=== PATIENT | male | born 1990 | race Caucasian/White ===

== ENCOUNTER 2017-10-24 17:13 | Emergency (ER) | payer BC, MEDICAID ==
[~2017-10-24] VITALS: Ht 172.7 cm; Wt 79.0 kg
[2017-10-24] MEDS ORDERED: SODIUM CHLORIDE FLUSH 10ML SYR IVF ONE (17:30)
[2017-10-24 17:53] LABS: BASOPHILS # (AUTO) 0.05 x10^3/uL (0-0.1); BASOPHILS % (AUTO) 0 % (0-1); EOSINOPHILS # (AUTO) 0.11 x10^3/uL (0-0.4); EOSINOPHILS % (AUTO) 1 % (1-7); LYMPHOCYTES # (AUTO) 2.07 x10^3/uL (1-3.4); LYMPHOCYTES % (AUTO) 18 % (22-44); MD NO; MEAN CORPUSCULAR HEMOGLOBIN 32.2 pg (27.5-34.5); MEAN CORPUSCULAR HGB CONC 34.3 g/dL (33.2-36.2); MEAN CORPUSCULAR VOLUME 93.8 fL (81-97); MEAN PLATELET VOLUME 9.1 fL (7.4-10.4); MONOCYTES # (AUTO) 0.45 x10^3/uL (0.2-0.8); MONOCYTES % (AUTO) 4 % (2-9); NEUTROPHILS # (AUTO) 8.69 x10^3/uL (1.8-6.8); NEUTROPHILS % (AUTO) 76 % (42-75); PLATELET COUNT 276 x10^3/uL (130-400); RED BLOOD COUNT 4.62 x10^6/uL (4.38-5.82); RED CELL DISTRIBUTION WIDTH 12.6 % (9.4-14.8)
[2017-10-24 18:05] LABS: ALANINE AMINOTRANSFERASE 43 U/L (12-78); ALBUMIN 4.1 g/dL (3.4-5.0); ANION GAP 8 mmol/L (5-15); CALCIUM 9.1 mg/dL (8.5-10.1); CHLORIDE 108 mmol/L (98-107)
[2017-10-24 18:10] LABS: ALKALINE PHOSPHATASE 94 U/L (45-117); BILIRUBIN,TOTAL 0.4 mg/dL (0.2-1.0); TOTAL PROTEIN 7.8 g/dL (6.4-8.2); TROPONIN I < 0.015 ng/mL (0.000-0.045)
[2017-10-24 18:44] VITALS: BP 128/78
== END 2017-10-24 19:02 | disposition home or self-care (01) ==
LOC: ED 18:00
DX: R07.89 Other chest pain (principal); J45.909 Unspecified asthma, uncomplicated; G43.909 Migraine, unspecified, not intractable, without status migrainosus; Z87.891 Personal history of nicotine dependence
CPT/HCPCS: 36415; 71045; 80053; 83690; 84484; 85025; 93005; 99285

== ENCOUNTER 2018-11-16 06:42 | Emergency (ER) | payer SELFPAY ==
[~2018-11-16] VITALS: Ht 172.7 cm; Wt 80.6 kg
--- NOTE | 2018-11-16 07:06 | NUR ---
PT. TO ED WITH C/O ANXIETY. JUAN CARLOS ARREOLA IN TO EVAL PT. AND DISCUSS POC. REPORT TO KAITY ORNELAS.
[2018-11-16] MEDS ORDERED: LORazepam 1MG TABLET ONE (07:21)
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
[2018-11-16] MEDS ORDERED: LORazepam 1MG TABLET PO ONE (07:30)
[2018-11-16 08:10] VITALS: BP 132/78
--- NOTE | 2018-11-16 08:11 | NUR ---
PATIENT LEFT. DISCHARGE TEACHING REVIEWED. SHOWS UNDERSTANDING.
== END 2018-11-16 08:18 | disposition home or self-care (01) ==
LOC: ED 08:05
DX: F41.1 Generalized anxiety disorder (principal); J45.909 Unspecified asthma, uncomplicated; F17.210 Nicotine dependence, cigarettes, uncomplicated
CPT/HCPCS: 99284

== ENCOUNTER 2018-12-31 02:03 | Emergency (ER) | payer SELFPAY ==
[~2018-12-31] VITALS: Ht 172.7 cm; Wt 80.8 kg
[2018-12-31 02:40] LABS: BASOPHILS # (AUTO) 0.06 x10^3/uL (0-0.1); BASOPHILS % (AUTO) 0 % (0-1); EOSINOPHILS # (AUTO) 0.16 x10^3/uL (0-0.4); EOSINOPHILS % (AUTO) 1 % (1-7); LYMPHOCYTES # (AUTO) 2.03 x10^3/uL (1-3.4); LYMPHOCYTES % (AUTO) 14 % (22-44); MD NO; MEAN CORPUSCULAR HEMOGLOBIN 33.2 pg (27.5-34.5); MEAN CORPUSCULAR HGB CONC 34.3 g/dL (33.2-36.2); MEAN CORPUSCULAR VOLUME 96.9 fL (81-97); MEAN PLATELET VOLUME 8.5 fL (7.4-10.4); MONOCYTES # (AUTO) 0.48 x10^3/uL (0.2-0.8); MONOCYTES % (AUTO) 3 % (2-9); NEUTROPHILS # (AUTO) 11.38 x10^3/uL (1.8-6.8); NEUTROPHILS % (AUTO) 81 % (42-75); PLATELET COUNT 303 x10^3/uL (130-400); RED BLOOD COUNT 4.94 x10^6/uL (4.38-5.82)
[2018-12-31 02:51] LABS: ALANINE AMINOTRANSFERASE 28 U/L (12-78); ALBUMIN 4.5 g/dL (3.4-5.0); ANION GAP 6 mmol/L (5-15); CALCIUM 9.7 mg/dL (8.5-10.1); CHLORIDE 106 mmol/L (98-107); CREATININE 0.82 mg/dL (0.7-1.3)
[2018-12-31 02:54] LABS: ALKALINE PHOSPHATASE 58 U/L (45-117); BILIRUBIN,TOTAL 0.2 mg/dL (0.2-1.0); TOTAL PROTEIN 8.2 g/dL (6.4-8.2)
[2018-12-31 04:33] LABS: MICROSCOPIC NOT IND
--- NOTE | 2018-12-31 04:36 | NUR ---
PT ABLE TO PROVIDE URINE SAMPLE. URINE TAKEN TO LAB
[2018-12-31 04:54] LABS: CULTURE INDICATED? NO
[2018-12-31 05:16] VITALS: BP 115/59
== END 2018-12-31 05:18 | disposition home or self-care (01) ==
LOC: ED 02:17
DX: K59.00 Constipation, unspecified (principal); R10.33 Periumbilical pain; F41.1 Generalized anxiety disorder; G43.909 Migraine, unspecified, not intractable, without status migrainosus; J45.909 Unspecified asthma, uncomplicated; F17.200 Nicotine dependence, unspecified, uncomplicated
CPT/HCPCS: 36415; 74021; 80053; 80307; 81003; 83690; 85025; 99284

== ENCOUNTER 2019-11-08 16:39 | Emergency (ER) | payer BC ==
[~2019-11-08] VITALS: Ht 175.3 cm; Wt 80.3 kg
--- NOTE | 2019-11-08 16:44 | NUR ---
PT CALLED X1, IN [place].
--- NOTE | 2019-11-08 17:10 | NUR ---
Pt complaining of palpitations that have been intermittent x1 month. Placed Pt on monitor. No distress noted at this time.
[2019-11-08 17:54] LABS: BASOPHILS # (AUTO) 0.05 x10^3/uL (0-0.1); BASOPHILS % (AUTO) 1 % (0-1); EOSINOPHILS # (AUTO) 0.16 x10^3/uL (0-0.4); EOSINOPHILS % (AUTO) 2 % (1-7); LYMPHOCYTES # (AUTO) 1.91 x10^3/uL (1-3.4); LYMPHOCYTES % (AUTO) 24 % (22-44); MD NO; MEAN CORPUSCULAR HEMOGLOBIN 31.6 pg (27.5-34.5); MEAN CORPUSCULAR HGB CONC 33.9 g/dL (33.2-36.2); MEAN CORPUSCULAR VOLUME 93.4 fL (81-97); MEAN PLATELET VOLUME 8.6 fL (7.4-10.4); MONOCYTES # (AUTO) 0.44 x10^3/uL (0.2-0.8); MONOCYTES % (AUTO) 6 % (2-9); NEUTROPHILS # (AUTO) 5.52 x10^3/uL (1.8-6.8); NEUTROPHILS % (AUTO) 68 % (42-75); PLATELET COUNT 264 x10^3/uL (130-400); RED BLOOD COUNT 4.76 x10^6/uL (4.38-5.82); RED CELL DISTRIBUTION WIDTH 12.8 % (9.4-14.8)
[2019-11-08 18:05] LABS: ALBUMIN 4.1 g/dL (3.4-5.0); ANION GAP 5 mmol/L (5-15); CALCIUM 9.3 mg/dL (8.5-10.1); CHLORIDE 102 mmol/L (98-107); CREATININE 0.83 mg/dL (0.7-1.3)
[2019-11-08 18:08] LABS: TROPONIN I < 0.015 ng/mL (0.000-0.045)
--- NOTE | 2019-11-08 18:15 | NUR ---
Resting in [facility]. NAD. No needs.
--- NOTE | 2019-11-08 18:37 | NUR ---
VSS. Awaiting POC from provider.
--- NOTE | 2019-11-08 19:02 | NUR ---
Crow tee in [facility] - 11/08/19 at 1904 by [facility] L [facility]
[2019-11-08 19:50] VITALS: BP 156/66
--- NOTE | 2019-11-08 19:50 | NUR ---
Patient/Caregiver given discharge instructions and they have confirmed that they understand the instructions. Patient ambulatory with steady gait.
== END 2019-11-08 19:53 | disposition home or self-care (01) ==
LOC: ED 17:34
DX: R00.2 Palpitations (principal); F41.1 Generalized anxiety disorder; R07.89 Other chest pain; G43.909 Migraine, unspecified, not intractable, without status migrainosus; J45.909 Unspecified asthma, uncomplicated; R00.0 Tachycardia, unspecified; R94.31 Abnormal electrocardiogram [ECG] [EKG]
CPT/HCPCS: 36415; 71045; 80048; 82040; 84484; 85025; 93005; 99285

== ENCOUNTER 2019-11-14 20:56 | Emergency (ER) | payer BC ==
[~2019-11-14] VITALS: Ht 172.7 cm; Wt 170.0 kg
[2019-11-14 21:04] VITALS: BP 146/100
--- NOTE | 2019-11-14 21:17 | NUR ---
PATIENT WAS SEEN WALKING IN THE HALLWAY FULLY DRESSED AND BELONGINGS IN HAND. ASKED PATIENT WHERE HE WAS GOING HE STATED "IM LEAVING AMA" AND WALKED OUT THE DOOR. ROSENDA RANGEL INFORMED.
== END 2019-11-14 21:21 | disposition left against medical advice (07) ==
LOC: ED 21:00
DX: R07.9 Chest pain, unspecified (principal); J45.909 Unspecified asthma, uncomplicated; F17.210 Nicotine dependence, cigarettes, uncomplicated
CPT/HCPCS: 99283

== ENCOUNTER 2019-11-14 21:51 | Emergency (ER) | payer BC ==
[~2019-11-14] VITALS: Ht 175.3 cm; Wt 79.9 kg
[2019-11-14 22:01] VITALS: BP 139/79
--- NOTE | 2019-11-14 22:37 | NUR ---
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
--- NOTE | 2019-11-14 22:39 | NUR ---
PT FROM LOBBY TO ROOM WITH STEADY GAIT.
[2019-11-14] MEDS ORDERED: LORazepam 1MG TABLET PO ONE (23:00)
[2019-11-14] MEDS ORDERED: LORazepam 1MG TABLET ONE (23:04)
--- NOTE | 2019-11-14 23:20 | NUR ---
PT MEDICATED PER MAR FOR ANXIETY PER MAR.
--- NOTE | 2019-11-14 23:42 | NUR ---
PT D/C WITH D/C SUMMARY. ALL QUESTIONS ANSWERED. PT AMBULATES TO REGISTRATION DESK WITH STEADY GAIT FOR D/C HOME. PT DENIES ANY OTHER NEEDS PERTAINING TO THIS VISIT.
== END 2019-11-14 23:44 | disposition home or self-care (01) ==
LOC: ED 22:45
DX: F41.1 Generalized anxiety disorder (principal); R07.89 Other chest pain; J45.909 Unspecified asthma, uncomplicated; F17.200 Nicotine dependence, unspecified, uncomplicated; R94.31 Abnormal electrocardiogram [ECG] [EKG]
CPT/HCPCS: 93005; 99283

== ENCOUNTER 2021-02-06 13:48 | Emergency (ER) | payer SELFPAY ==
[~2021-02-06] VITALS: Ht 175.3 cm; Wt 83.9 kg
--- NOTE | 2021-02-06 14:59 | NUR ---
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
--- NOTE | 2021-02-06 15:42 | NUR ---
Med student at bedside for eval.
[2021-02-06] MEDS ORDERED: KETOROLAC 30 MG/1 ML IM ONE (16:30)
[2021-02-06] MEDS ORDERED: PROCHLORPERAZINE 5 MG/ML, 2ML IM ONE (16:30)
[2021-02-06] MEDS ORDERED: DIPHENHYDRAMINE 50 MG/ML, 1ML IM ONE (16:30)
[2021-02-06] MEDS ORDERED: DIPHENHYDRAMINE 50 MG/ML, 1ML ONE (16:35)
[2021-02-06] MEDS ORDERED: KETOROLAC 60 MG/2 ML ONE (16:35)
[2021-02-06] MEDS ORDERED: PROCHLORPERAZINE 5 MG/ML, 2ML ONE (16:35)
--- NOTE | 2021-02-06 16:51 | NUR ---
Pt sleeping upon entering the room. Meds administered as per order. VSS. No further orders. WCTM.
--- NOTE | 2021-02-06 17:18 | NUR ---
Pt sleeping, resps even and unlabored.
--- NOTE | 2021-02-06 17:28 | NUR ---
Pt resting on gurney with eyes closed, visible chest rise seen. No further orders at this time. WCTM.
--- NOTE | 2021-02-06 18:01 | NUR ---
Dr. Bryant at bedside to evaluate pt who reports feeling much improved with current pain at 09/13. VS updated - WNL.
[2021-02-06 18:48] VITALS: BP 107/66
--- NOTE | 2021-02-06 19:03 | NUR ---
Pt left cell phone on [facility]. Labeled and given to security.
== END 2021-02-06 19:04 | disposition home or self-care (01) ==
LOC: ED 16:01
DX: R51.9 Headache, unspecified (principal); H57.89 Other specified disorders of eye and adnexa; J45.909 Unspecified asthma, uncomplicated; Z91.19 Patient's noncompliance with other medical treatment and regimen
CPT/HCPCS: 96372; 99285; J0780; J1200; J1885